=== PATIENT | male | born 1995 | race Hispanic/Latino ===

== ENCOUNTER 2024-08-13 06:13 | Inpatient (IN) | payer SELFPAY ==
[2024-08-13] VITALS (95 sets, daily range): BP systolic 77–170; BP diastolic 62–134
[~2024-08-13] VITALS: Ht 167.6 cm; Wt 72.0 kg
[2024-08-13] MEDS ORDERED: ONDANSETRON HCl 4 MG/2 ML SDV IV ONE (06:25)
[2024-08-13] MEDS ORDERED: DEXTROSE 5% w/NACL 0.45 1,000 ML IV ONE (06:25)
[2024-08-13] MEDS ORDERED: THIAMINE HCL 100 MG/ML 2ML VIAL IV ONE (06:35)
[2024-08-13 06:50] LABS: BASO% 0.9 % (0-3); EOS% 3.3 % (0-8); HEMATOCRIT 42.8 % (39.0-50.0); HEMOGLOBIN 14.1 g/dl (14.0-18.0); IMMATURE GRANULOCYTES 0.4 % (0.0-5.0); LYMPH% 25.4 % (15-41); MEAN CORPUSCULAR HGB 29.3 pG CALC (26.0-32.0); MEAN CORPUSCULAR HGB CONC 32.9 g/dL CAL (32.0-36.0); MONO% 8.3 % (2-13); NEUT# 2.84 thou/uL (1.82-7.42); NEUT% 61.7 % (42-76); RED BLOOD COUNT 4.81 mill/uL (4.70-6.10); RED CELL DISTRI WIDTH 12.9 % (11.5-15.5)
[2024-08-13 06:52] LABS: URINE BILIRUBIN - DIPSTICK Negative (NEGATIVE); URINE BLOOD DIPSTICK Negative (NEGATIVE); URINE CLARITY Clear; URINE GLUCOSE - DIPSTICK Negative (NEGATIVE); URINE KETONE Negative (NEGATIVE); URINE LEUK ESTERASE Negative (Negative); URINE NITRITE - DIPSTICK Negative (Negative); URINE PROTEIN - DIPSTICK Negative (NEG-TRACE); URINE SPECIFIC GRAVITY <=1.005; URINE UROBILINOGEN - DIPSTICK 0.2 E.U./dL (0.2)
[2024-08-13 06:53] LABS: URINE COLOR Yellow
[2024-08-13] MEDS ORDERED: LORazepam 2 MG/ML IV ONE (07:35)
[2024-08-13] MEDS ORDERED: MULTIPLE VITAMIN 10 ML,THIAMINE HCL 100 MG in SODIUM CHLORIDE 0.9% 1,000 ML IV ONE (07:40)
[2024-08-13 09:07] LABS: ALBUMIN 4.2 g/dL (3.2-5.0); BILIRUBIN, TOTAL 0.3 mg/dL (0.2-1.3); CREATININE 0.8 mg/dL (0.7-1.3)
[2024-08-13] MEDS ORDERED: MAGNESIUM HYDROXIDE 30 ML UDC PO PRN (10:30)
[2024-08-13] MEDS ORDERED: SODIUM CHLORIDE 0.9% 1,000 ML IV PRN (10:30)
[2024-08-13] MEDS ORDERED: ONDANSETRON HCl 4 MG/2 ML SDV IV PRN (10:30)
[2024-08-13] MEDS ORDERED: ACETAMINOPHEN 325 MG/TAB PO PRN (10:30)
[2024-08-13] MEDS ORDERED: LORazepam 2 MG/ML IV PRN (11:00)
[2024-08-13] MEDS ORDERED: chlordiazePOXIDE HCL 25 MG CAP PO PRN (11:00)
[2024-08-13] MEDS ORDERED: ENOXAPARIN SODIUM 40 MG/0.4 ML SYR SC SCH (21:00)
[2024-08-14] VITALS (11 sets, daily range): BP systolic 108–143; BP diastolic 62–90
[2024-08-14 05:03] LABS: BASO% 0.5 % (0-3); EOS% 8.4 % (0-8); HEMATOCRIT 43.5 % (39.0-50.0); HEMOGLOBIN 14.6 g/dl (14.0-18.0); IMMATURE GRANULOCYTES 0.2 % (0.0-5.0); LYMPH% 25.8 % (15-41); MEAN CELL VOLUME 89.3 fL CALC (80.0-100.0); MEAN CORPUSCULAR HGB CONC 33.6 g/dL CAL (32.0-36.0); MONO% 9.4 % (2-13); NEUT# 3.2 thou/uL (1.82-7.42); NEUT% 55.7 % (42-76); RED BLOOD COUNT 4.87 mill/uL (4.70-6.10); RED CELL DISTRI WIDTH 12.8 % (11.5-15.5)
[2024-08-14 05:21] LABS: CREATININE 0.8 mg/dL (0.7-1.3); MAGNESIUM 2.2 mg/dL (1.6-2.3); POTASSIUM 4.2 mmol/l (3.5-5.1); TOTAL PROTEIN 6.2 g/dL (6.3-8.2)
[2024-08-14 05:22] LABS: BILIRUBIN, TOTAL 1.4 mg/dL (0.2-1.3)
[2024-08-14] MEDS ORDERED: THIAMINE HCL 100 MG,MULTIPLE VITAMIN 10 ML in DEXTROSE 5% / 0.9% NACL 1,000 ML IV SCH (09:00)
[2024-08-14] MEDS ORDERED: CHLORDIAZEPOXID25 M1 PO (09:42)
[2024-08-14] MEDS ORDERED: ZOFRAN4 MG/TAB PO (09:44)
== END 2024-08-14 11:45 | disposition home or self-care (01) | DRG 897 ==
LOC: ED 06:13 → EDBD 06:23 → ED-I 09:00 → ED 09:29 → ICU 09:30
PROVIDERS: Emergency Medicine; Family Medicine; Nurse Practitioner Family; ADMIT Internal Medicine; ATTEND Internal Medicine
DX: F10.139 Alcohol abuse with withdrawal, unspecified (principal); Y90.8 Blood alcohol level of 240 mg/100 ml or more; R74.8 Abnormal levels of other serum enzymes; Z63.0 Problems in relationship with spouse or partner
CPT/HCPCS: J1650; J2060